=== PATIENT | female | born 1985 | race Caucasian/White ===

== ENCOUNTER 2017-02-14 14:22 | Emergency (ER) | payer BC ==
[~2017-02-14] VITALS: Ht 162.6 cm; Wt 77.6 kg
[~2017-02-14 14:22] MED LIST: ADVAIR 250/501 DISK IH; ALAVERT10 MG PO; ALBUTEROL SULF8.5 GM IH; ALBUTEROL17 GM IH; ASPIRIN325 MG PO; ENDOCET 5-3251 EACH PO; ERGOCALCIF50000 UNIT PO; FEOSOL325 MG PO; FERROUS SULFAT325 MG PO; FIORICET; FLEXERIL10 MG PO; IBUPROFEN400 MG PO; IBUPROFEN800 MG PO; LIPOZENE PO; LOVENOX40 MG/0.4 SC; MOTRIN800 MG PO; MUCINEX1200 MG PO; MULTI-DAY VITA1 EACH PO; MULTIPLE VITAM1 EACH PO; NASONEX17 GM NS; NEXIUM; NEXIUM20 MG PO; NOHOMEMEDS; OXYCONTIN10 MG PO; Pepcid PO; Proventil,Ventolin H IH; SENNA-TIME S T1 EACH PO; TUMS; TUMS500 MG PO; TYLENOL; TYLENOL EXTRA500 MG PO; TYLENOL WITH C1 EACH PO; ULTRAM50 MG PO; ZANTAC15 MG/ML PO; ZANTAC150 MG PO; [UNRECOGNIZED DRUG - OTHER] PO
[2017-02-14] MEDS ORDERED: FLUOXETINE HCL40 MG PO (15:06)
[2017-02-14 15:08] LABS: HEMATOCRIT 35.5 % (36.0-46.0); MCH 30.4 PG (29.0-34.0); MCHC 33.5 G/DL (30.0-36.0); MCV 90.8 FL (83-99); MEAN PLAT.VOLUME 9.7 uM^3 (9.5-12.4); PLATELET COUNT 218 K/uL (156-360); RBC DIS.WIDTH-CV 12.4 % (11.8-14.6); RBC DIS.WIDTH-SD 41.1 % (39-53); RED BLOOD COUNT 3.91 M/uL (3.80-5.20); WHITE BLOOD COUNT 8.2 K/uL (4.1-10.2)
[2017-02-14 15:18] LABS: CHLORIDE 107 mEq/L (99-109); POTASSIUM 4.6 mEq/L (3.7-5.4); SODIUM 139 mEq/L (136-147)
[2017-02-14 15:20] LABS: GLUCOSE 94 mg/dL (70-99)
[2017-02-14 15:21] LABS: ANION GAP 6 MEQ/L (2-14)
[2017-02-14 15:22] LABS: TOTAL BILIRUBIN 0.4 mg/dL (0.0-1.0)
[2017-02-14 15:23] LABS: ALKALINE PHOSPHATASE 46 IU/L (3-129)
[2017-02-14 15:24] LABS: GFR ESTIMATE (CALCULATED) > 59 mL/min/
[2017-02-14 15:25] LABS: UREA NITROGEN (BUN) 11 mg/dL (9-23)
[2017-02-14 15:27] LABS: LIPASE 12 U/L (1.0-51.0)
[2017-02-14 15:33] LABS: QUANTITATIVE HCG 7.5 MIU/ML
[2017-02-14 15:40] LABS: ADD MIUA? YES; BILIRUBIN NEGATIVE; BLOOD MODERATE; COLOR STRAW ((YELLOW)); GLUCOSE (STRIP) NEGATIVE; KETONES NEGATIVE; LEUKOCYTES NEGATIVE; NITRITE NEGATIVE; PROTEIN (STRIP) NEGATIVE; SPECIFIC GRAVITY 1.006 (1.000-1.030); UROBILINOGEN 0.2 MG/DL (0.2-1.0)
[2017-02-14 15:42] LABS: BACTERIA NONE SEEN /HPF; EPITHELIAL CELLS RARE /HPF; MUCUS TRACE /LPF; RED BLOOD CELLS 0-5 /HPF (0-5); WHITE BLOOD CELLS 0-5 /HPF (0-5)
[2017-02-14 18:33] VITALS: BP 109/72
== END 2017-02-14 18:38 | disposition home or self-care (01) ==
LOC: EME 14:22
PROVIDERS: Nurse Practitioner Family
DX: O20.9 Hemorrhage in early pregnancy, unspecified (principal); M54.5 Low back pain; R10.31 Right lower quadrant pain; Z87.442 Personal history of urinary calculi
CPT/HCPCS: 76801; 80053; 81003; 83690; 84702; 85027; 86900; 86901; 99281; 99284